=== PATIENT | female | born 1960 | race Caucasian/White ===

== ENCOUNTER → 2023-11-16 10:01 | Outpatient (BNVA) | payer OTHER, SELFPAY | PROVIDERS: Visit Provider Physician Assistant | DX: M17.11 Unilateral primary osteoarthritis, right knee | CPT/HCPCS: 73560; 73565 ==

== ENCOUNTER 2023-11-16 11:51 | Outpatient (CLI) | payer OTHER, SELFPAY | END 2023-11-16 11:52 | disposition home or self-care (01) | LOC: SPT 11:51 | PROVIDERS: Visit Provider Physician Assistant | DX: Z46.89 Encounter for fitting and adjustment of other specified devices (principal); M17.11 Unilateral primary osteoarthritis, right knee | CPT/HCPCS: 97760; L1851 ==

== ENCOUNTER 2024-04-04 11:37 | Outpatient (CLI) | payer OTHER, SELFPAY ==
--- NOTE | 2024-04-04 14:00 | CT_ITS ---
WS: [id number] CT RIGHT knee, noncontrast HISTORY: Right total knee arthoplasty TECHNIQUE: Protocol for [facility] total knee replacement has been obtained. This includes axial imaging th rough the RIGHT hip, RIGHT knee and RIGHT ankle. DLP: 1110.57 mGy.cm COMPARISON: Radiograph 11/16/2023 Mild degenerative air of the SI joints. Symmetric appearance of the hips. No bone destruction. RIGHT knee: Mild lateral subluxation of the patella. Tricompartment joint space narrowing. Small supr apatellar joint effusion. RIGHT ankle: Negative. CT/CT knee RT [facility] [id number] IMPRESSION: CT imaging provided for [facility] robotic total knee replacement.
== END 2024-04-04 11:38 | disposition home or self-care (01) ==
LOC: RAD 11:41
PROVIDERS: Visit Provider Physician Assistant
DX: Z01.818 Encounter for other preprocedural examination (principal); M17.11 Unilateral primary osteoarthritis, right knee
CPT/HCPCS: 73700

== ENCOUNTER → 2024-04-05 09:04 | Outpatient (BNVA) | payer OTHER, SELFPAY | PROVIDERS: Visit Provider Family Medicine | DX: Z01.818 Encounter for other preprocedural examination (principal) | CPT/HCPCS: 80053; 81003; 85025 ==

== ENCOUNTER 2024-04-19 10:26 | Observation (INO) | payer OTHER, SELFPAY ==
[2024-04-19] VITALS (16 sets, daily range): BP systolic 90–146; BP diastolic 53–84; PULSE 60–87; RESP 15–20; TEMP 35.7–36.8; O2SAT 93–100; BMI 31.2
[2024-04-19] MEDS: lactated ringers 500 ML IV (06:53)
[2024-04-19] MEDS: acetaminophen 1,000 MG/100 ML PIGGYBACK 400 MG IV ×3 (06:55→23:04)
[2024-04-19] MEDS: sodium chloride 0.9% 1,000 ML 30 ML IV (06:56)
[2024-04-19] MEDS: scopolamine 1.5 Patch 1 PATCH TRANSDERMA (07:00)
[2024-04-19] MEDS: ketorolac 30 mg/mL INJ IVP (07:00)
--- NOTE | 2024-04-19 07:01 | P.ANESASSM_ITS ---
Pre-Anesthetic Assessment Height/Weight: Height 5 ft 5 in Weight 188 lb Temp Pulse Resp BP Pulse Ox O2 Del Method 97.3 F L 62 17 146/84 97 Room Air 04/19/24 06:27 04/19/24 06:27 04/19/24 06:27 04/19/24 06:27 04/19/24 06:27 04/19/24 06:28 Preop Diagnosis: Arthritis Operation Date: 04/19/24 08:00 Proposed Procedures p Eduard Robot Total Knee Arthroplasty(Right) - Sanchez Calles, DO Was Beta Gustavo taken within 24 hours: N/A Was Clonidine taken within 24 hours: N/A Last intake: Intake Last Liquid Date 04/18/24 Last Liquid Time 21:00 Last Solid Date 04/18/24 Last Solid Time 01:00 Social No alcohol and No tobacco Exam alert, oriented x 3, clear to auscultation bilaterally and regular rate & rhythm Airway Submandibular: within normal limits Cervical ROM: within normal limits Mallampati: Class II Dentition: full Anesthetic Plan Anesthesia: MAC and Regional (specify below) Other: No prior issues with anesthesia NPO since midnight Denies any cardiac or pulmonary issues Preop BP 146/84 Labs reviewed and acceptable for procedure METs greater than 4 Plan for spinal anesthetic with post induction adductor canal block Medications/Allergies Home Medications Medication Instructions Recorded Confirmed Last Taken Type right lateral extractor loader and unloader knee brace #1 ea 11/16/23 04/18/24 Unknown Rx Allergies Allergy/AdvReac Type Severity Reaction Status Date / Time Penicillins Allergy Unknown Unknown Verified 04/19/24 06:23 Current Medications Generic Name Dose Route Start Last Admin Trade Name Rylanq PRN Reason Stop Dose Admin Lactated Ringer's 500 mls @ 500 mls/hr 04/19/24 06:11 04/19/24 06:53 Lactated Ringers IV 04/19/24 07:10 500 mls/hr .Q1H ONE Administration PFSH Anesthesia Social History Smoking and tobacco/nicotine status: former use of tobacco/nicotine Second hand smoke exposure: No Alcohol intake: current Alcohol intake frequency: holidays/special occasions only Alcohol type: beer Substance/Drug Use: never Adopted: No Caregiver/support person: Yes Lives independently: No Household members: spouse Housing: House Marital status: Number of children: 4 Number of grandchildren: 12 Highest education level completed: Some College, No Degree Data Anesthesia 04/19/24 06:38 04/19/24 06:38 Cardiac Studies: 2 No Data to Display
--- NOTE | 2024-04-19 07:04 | W.PM.OPSUD ---
Surgery/Procedure H&P Update DATE OF PROCEDURE: April 19, 2024 DATE H&P PERFORMED: 04/17/24 H&P UPDATE INFORMATION: I have reviewed H&P completed within last 30 days, I have examined patient prior to procedure and No changes to prior documentation CHANGES TO PREVIOUS DOCUMENTATION: Patient at this point in time has a which she states penicillin allergy back when she was a little child. At this point time we talked about Ancef and that this would cover the best for perioperative infection prevention as well as the low risk of cross-reactivity we talked about this in detail she understands and agrees to proceed with Ancef preoperatively. Patient understands agrees to current plan. All questions answered. PREOP DIAGNOSIS: Right knee degenerative joint disease PRIMARY INDICATION FOR PROCEDURE: Right knee degenerative joint disease PLANNED PROCEDURE: Operation Date: 04/19/24 08:00 Proposed Procedures p Eduard Robot Total Knee Arthroplasty(Right) - Sanchez Calles DO
[2024-04-19 07:06] LABS: Basophils # 0.1 10^3/uL (0.0-0.1); Basophils % 1.4 %; Eosinophils # 0.3 10^3/uL (0.0-0.8); Eosinophils % 4.9 %; Hematocrit 46.3 % (36-47); Lymphocytes # 2.4 10^3/uL (0.8-4.8); Lymphocytes % 38.8 %; Mean Corpuscular HGB Conc 33.7 g/dL (30-55); Mean Corpuscular Hemoglobin 29.8 pg (27-33); Mean Corpuscular Volume 88.4 fl (85-98); Mean Platelet Volume 10.1 fL (7.4-10.4); Monocytes # 0.4 10^3/uL (0.2-0.9); Monocytes % 5.6 %; Neutrophils # 3.08 10^3/uL (1.8-7.7); Neutrophils % 49.1 %; Nucleated Red Blood Cells % 0 %; Platelet Count 269 10^3/cmm (157-399); Red Blood Count 5.24 10^6/uL (3.85-5.65); Red Cell Distribution Width 11.9 % (12.1-15.1); White Blood Count 6.27 10^3/uL (3.29-11.43)
[2024-04-19 07:20] LABS: Blood Urea Nitrogen 15 mg/dL (8-23); Calcium 8.3 mg/dL (8.5-10.5); Carbon Dioxide 24 mmol/L (22-29); Chloride 108 mmol/L (98-107); Creatinine Clr Calc Pharmacy 106.1809; Glomerular Filtration Rate 101.6 mL/min (90-130); Glucose 84 mg/dL (65-115); Osmolality Calculated 294 mOsm/kg (285-295); Sodium 142 mmol/L (136-145)
[2024-04-19 07:24] LABS: Anion Gap 14.1 (5-19); Potassium 4.1 mmol/L (3.5-5.1)
[2024-04-19] MEDS: ceFAZolin 2,000 MG in sodium chloride 0.9% (plus) 50 ML 100 MG IV ×3 (07:54→23:12)
[2024-04-19] MEDS: tranexamic acid 1,000 mg/10mL SDV 1000 MG IV (08:20)
[2024-04-19] MEDS: EPINEPHrine 1 mg/mL INJ XX (08:55)
[2024-04-19] MEDS: tranexamic acid 1,000 mg/10mL SDV 1000 MG XX (08:55)
[2024-04-19] MEDS: ROPivacaine 0.2% Premix 100 mL 200 MG INTRA-ARTI (08:55)
[2024-04-19] MEDS: ketorolac 30 mg/mL INJ XX (08:55)
--- NOTE | 2024-04-19 09:37 | ANES.PROC ---
Anesthesia Procedures Procedure/Date: 04/19/24 Nerve Block ^: Nerve Block 1: Main Anesthesia: general anesthesia Time Out Performed: Yes Consent: requested by attending/covering physician Nerve block location: adductor canal Anesthesia monitors applied: pulse oximetry, EKG, BP cuff and oxygen Nerve block position: supine Anesthetic Used: ropivicaine 0.5% Amount of anesthesia used (mL): 20 Ultrasound used to: recognize landmarks Nerve Stimulator Used?: No Interscalene/Femoral BLK: other needle (pjunk 4inch) and visualize local anesthetic spread Injection: neg aspiration of heme Patient Tolerated Procedure: well Complications: none
--- NOTE | 2024-04-19 10:28 | XRR_ITS ---
PROCEDURE INFORMATION: Exam: XR Right Knee Exam date and time: 04/19/2024 10:53 AM Age: 63 years old Clinical indication: Device placement; Joint replacement hardware; Prior surgery; Surgery date: Post-operative (0-2 days); Surgery type: R tka; Additional info: S/P R tka TECHNIQUE: Imaging protocol: Radiologic exam of the right knee. Views: 1 or 2 views. COMPARISON: CT knee RT [facility] [id number] 04/04/2024 12:14 PM FINDINGS: Please note that the images are mislabeled. This is a right knee exam. Bones/joints: There are postoperative changes status post right knee replacement. Components are in anatomic alignment. No fractures are noted. Bony mineralization is normal. There is air within the joint from recent surgery. Soft tissues: Normal. XR/XR knee RT 1-2V [id number] IMPRESSION: 1. Postoperative changes status post right knee replacement.
--- NOTE | 2024-04-19 10:29 | P.OP_ITS ---
Operative Report Date of procedure: April 19, 2024 Surgeon: Sanchez Calles DO Chief Specialist Leed: Leeroy Calles PA-C: PA was necessary for assistance in this case with leg positioning retraction and protection of neurovascular structures as well as assistance in implantation wound closure and dressing application. Procedure: Preoperative diagnosis: Right knee degenerative joint disease Post-op diagnosis: Same Procedure done: Right total knee arthroplasty, cemented?robotic assisted Eduard Implants: Diana triathlon size 3 femur CR cemented?Right Diana triathlon size? 3 tibia universal baseplate cemented [place] triathlon symmetric patella size 31 mm Diana triathlon polyethylene 10mm Surgeon: Sanchez Calles DO Estimated blood?loss: 40 mL Tourniquet 75mins IV fluids: 1700 mL Urine output: 300 mL Complications: None Condition: stable Disposition: floor Brief History: Patient is a 63-year-old female with with chronic?Right knee degenerative joint disease.? Patient has been worked up in the outpatient setting in the orthopedic office at this point time through shared decision making given? [id number] arthritis as well as failed conservative treatment, and pt would?like to proceed with a?Right total knee arthroplasty.? Through shared decision making elected to proceed with surgical intervention for?Right total knee arthroplasty.? We talked about continued conservative treatment and surgical intervention as far as the risk benefits complications alternatives surgical and nonsurgical treatment options.? At this point time understanding patient risks with surgery pt agrees to proceed with surgical intervention.? Once again? risk with surgery include but are not?limited to make it better make it worse blood clot, heart attack, stroke, on the table, infection, injury to nerves or vessels, persistent pain, arthrofibrosis, implant failure.? Understanding these risks patient agrees to proceed with surgical intervention consent was obtained in the office.? All questions answered. Procedure: Patient was seen and evaluated in the preoperative holding area.? Consent was reviewed and signed with patient with plan for?Right total knee arthroplasty.? All questions answered.? Correct extremity marked.? Patient seen and evaluated by the anesthesia department and once cleared for surgery was taken back to the operative suite.? Patient was placed into a supine position on the OR table.? All bony prominences were well-padded.? Patient was appropriately secured to the bed.? Patient underwent anesthesia per the anesthesia department.? Patient received spinal anesthesia and? Siddiqui catheter was placed.? A nonsterile tourniquet was applied to the?Right thigh.? At this point in time a final timeout performed.? Patient received appropriate preoperative antibiotics and TXA. Next the?Right?lower extremity was then prepped and draped in standard orthopedic fashion. Esmarch tourniquet was used exsanguinate the?Right?lower ex tremity.? Tourniquet was insufflated to 250 mmHg. A standard anterior incision was made over midline of the knee.? Sharp scalpel excision through skin and subcutaneous tissue full-thickness skin flaps were made.? Fascia was elevated off of the extensor retinaculum was stable with medial parapatellar arthrotomy was then made.? The performed standard sequential releases..? Immediately on entry into the joint patient was found to have severe eburnated bone and tricompartmental arthritic changes noted.? With significant osteophyte formation.? Next the the patella was then stuffed and the knee was then flexed.?? Ro was placed superiorly around the anterior aspect of the femur this was freed of synovium and I subsequently then placed by 2 femur pins to establish my femur arrays for the Eduard robot.? These were then placed bicortically and? femur array was then appropriately secured with appropriate visualization.? Next attention was turned towards the tibial rays.? These were then drilled sequentially bicortically in parallel fashion and intraincisional.? I then placed my guide as well as my tibial array on in place.? This was appropriately secured and had excellent visualization with the Eduard robot.? Next the tibial checkpoint as well as femur checkpoint were then placed.? At this point time I then subsequently established my head center as well as my medial?lateral malleoli as well as my checkpoints.? Next utilizing standard Eduard technology I then mapped out the appropriate points and confirmation points around the femur as well as the tibia in standard fashion.? Once this was then done I then removed all osteophytes in preparation for dynamic testing.? All osteophytes were removed as well as I removed the ACL and the PCL was excised due to its significant tearing and degeneration noted.? At this point time the knee was brought into full extension and we performed our standard evaluation of our gap balancing stressing his?ligaments and extension as well as flexion appropriate adjustments were made to have appropriate gap balancing in both flexion and extension.? This plan for final counts.? We get a preoperative plan evaluating our implants which was a size 3 femur and a size 3 tibia.? Next we brought in the Eduard robot and sequentially made our femur cuts.? All excess bony cuts were then removed.? Finally we made our tibial cut.? Once this was done a standard PCL retractor was then placed into this position I excised the medial and?lateral meniscus.? The tibial cut was then subsequently removed all excess bony debris was removed.? I then utilized a?lamina fixed income trading vice president and remove the posterior osteophytes.? At this point time sized the tibia and confirmed this was a size 3.? I utilized our blunt probe to establish rotation of tibial implant.? Once this was done I then placed my tibia size 3 trial in appropriate position and then subsequently placed tibial pins to hold this into place placed a size 10 mm poly as well as a size 3 femur which was appropriately impacted in place knee was then subsequently brought into extension. Trials were then assessed,? this was stable with varus valgus stress in extension as well as had symmetrical translation when brought into flexion demonstrating symmetrical gaps. I had excellent balance gaps in flexion and extension with varus and valgus stresses.? At this point I was satisfied with these implants these were then verified and opened on the back table size 3 tibia, size 3 femur,? size 10 mm polythickness.? We did confirm appropriate gap balancing and stresses as well as alignment utilizing? Eduard and were satisfied with this plan.? ?At this point time with my trials in place I then towel clip the patella everted this made appropriate measurements subsequently utilizing freehand technique performed by patellar resurfacing this was confirmed to be appropriate resection and subsequently sized to be a 31 mm symmetric.? My drill peg guides were then clamped and appropriate position and appropriate position in the patella for appropriate tracking and parallel with the joint.? Pegs were drilled trial implant was placed and the knee was then subsequently ranged and found to have excellent patellar tracking.? Femur pegs were then drilled.? All checkpoints as well as guidepins and arrays were removed and appropriate counts made. Satisfied with our tibial placement rotation I then utilized the keel punch and prepped the tibia.? At this point time all of our trial implants were removed.? ? The wound bed? was thoroughly irrigated and dried and prepped for cementation.? Cement was mixed on the back table.? Once cement was ready this was then covered onto the tibia and the tibial baseplate was then impacted and all excess cement was removed.? Next the polyethylene was then impacted into place on the tibial baseplate.? Next cement was placed onto the femur as well as under the femur implants and impacted in to place and all excess cement was extruded and removed.? Knee was taken into full extension? to clear all excess cement was removed.? Warm saline was placed over the joint.? I then towel clip patella and dried for cementation. cemented the patella into place.? This was all clamped and the cement was allowed to cure.? Thorough irrigation performed with pulse?lavage.? I then placed my periarticular injection while the cement was curing.? Once cured the knee was taken through range of motion and had excellent stability and gaps were balanced in flexion and extension.? Tourniquet was then deflated. hemostasis satisfactory with electrocautery.? Next I then subsequently closed the capsule with Ethibond suture as well as a running strata fix suture.? Knee was then taken through range of motion 20 times.? Next the skin was then closed in?layered fashion of running stratifix sutures of deep and subcutenous tissue and skin.? ?closed in flexion and Prineo glue was then placed over the incision this allowed to cure.? Incision was covered with silverlon, with ABDs soft roll and Yovani wrap.? Patient was then awakened from anesthesia and taken to PACU in stable condition. Disposition: Patient taken to PACU in stable condition will be admitted to the floor for pain control PT/OT weight-bear as tolerated?Right?lower extremity dressing changes as needed, DVT prophylaxis. Pain control. Patient will receive appropriate postoperative antibiotics. ? Patient will follow up with the office in 2 weeks.? Patient understands agrees with current plan.? All questions answered.
--- NOTE | 2024-04-19 10:49 | P.BOP_ITS ---
Date of Procedure: [March 23, 20232023] Surgeon: [Dr. Calles DO] Circulating Nurse(s): [Leeroy Calles PA-C] Procedure(s) performed: [Right total knee arthroplasty with Eduard robotic assist] Findings of the procedure(s): [Right knee degenerative joint disease. Procedure went well and as planned.] Estimated blood loss: [40 ml] Specimen(s) removed: [N/A] Post-operative diagnosis: [Right knee degenerative joint disease.]
--- NOTE | 2024-04-19 10:52 | PM.PACU ---
PACU note Narrative: Patient is a 63-year female just underwent a right total knee arthroplasty. Pt transferred to PACU in stable condition. Dressing is dry. pt is awake and alert. pt can wiggle toes and plantarflex and dorsiflex foot. pt able to perform straight leg raise, Femoral nerve intact. Distal pulses are palpable toes are warm and well-perfused. Cap refill is normal and under 2 seconds. Sensation to foot is intact. Pain is controlled. Exam: awake Disposition: admitted
--- NOTE | 2024-04-19 11:05 | ANE.PACU2 ---
Inpatient post-anesthesia follow up: Airway intact: Yes Vital signs: Temperature 98.0 F Pulse Rate 68 Respiratory Rate 20 Blood Pressure 110/71 Pulse Oximetry 96 Oxygen Delivery Me thod Room Air Oxygen Flow Rate Fraction of Inspir ed Oxygen Hydration adequate: Yes Nausea and vomiting: No Pain level: 1 Mental status: Baseline
[2024-04-19] MEDS: chlorhexidine gluconate 0.12% Btl 473 mL 30 ML MUCOUS MEM ×3 (11:41→21:45)
[2024-04-19] MEDS: lactated ringers 1,000 ML 100 ML IV ×2 (11:42→21:45)
--- NOTE | 2024-04-19 12:41 | SUR.PHASEI ---
Pt given a warm blanket upon arrival to PACU. Pt temp within normal litmits upon arrival to PACU. While I was on hold trying to call report on the pt, she asked me if it was cold in the room to me. I told her yes it was, I did not have the first ice on her at that time because she was cold, I let her know she would be in her room upstairs shortly where it would be warmer and she could control the thermostat. She was okay with that. The pt's temp was taken with the last set of vitals at 1103 and was 97.4 temporally. When the pt got upstairs a bed had to be moved out of the room before Nela and I could wheel the pt in. I told Vanessa, the nurse, the first ice was not currently on the pt because she was cold. I remained in the room while a set of vital signs were taken. The temp on the vital cart would not read. It gave the loading sign, then it would go off, this went on for approximately 5 min while [facility] tried to get a temp under the pt's arms as well as orally. Vanessa said she would go get a hand held thermometer. After 5 to 7 min she returned. [facility] tried to get a temp with this thermometer with the same issue as before. No reading would show up. I told Vanessa the pt's temp was 97.4 when we left PACU, I stated I'd go back to PACU and get the temporal thermometer. Vanessa told me no, that the pt was cold and shivering and Sosa was getting a blanket for the bearhugger to put that on the pt. Above note reported to Ladan Georges, trade manager.
[2024-04-19] MEDS: tranexamic acid 1,000 MG/100 ML PREMIX 600 MG IV (15:40)
--- NOTE | 2024-04-19 17:05 | PM.CONSULT ---
Providers/Reason For Consult Consulting Physician/Specialty*: Dr. Orozco/internal medicine Reason for Consult*: Medical management Attending Physician: Sanchez Calles DO History of Present Illness History of Present Illness Denise Leyva is a 63 year old female with no significant past medical history underwent right total knee arthroplasty today. Reported to have 40 cc of blood loss. Hospital service was consulted for possible medical management. Appreciate CBC today showing normal hemoglobin, normal leukocytosis, CMP showing normal renal functions with mild transaminitis on 04/05. On examination patient lying comfortably in bed. Denies any complaints. Denies any nausea, vomiting, headache. States he has not seen a physician in many years but does not have a PCP. Review of Systems General: Reports: 10 or more systems reviewed and unremarkable except in HPI and below Const: Denies: fever(s), chills, body aches, change in appetite, change in weight, malaise, night sweats, diaphoresis, change in sleep pattern, daytime sleepiness or snoring Eyes: Denies: change in vision, blurry vision, photophobia, eye discomfort or eye discharge ENMT: Denies: throat pain, enlarged tonsils, hoarseness, mouth pain, oral sores, dry mouth, tinnitus, nasal congestion or post nasal drip Card: Denies: chest pain, palpitations, irregular heart rhythm, edema, swelling of feet/ankles, lightheadedness, syncope, pre-syncope, dyspnea on exertion, orthopnea, leg pain with exertion or acrocyanosis Resp: Denies: dyspnea, productive cough, non-productive cough, wheezing, stridor, pain on inspiration, change in phlegm color, hemoptysis or chest congestion GI: Denies: abdominal pain, nausea, vomiting, hematemesis, coffee ground emesis, dysphagia, heartburn, diarrhea, constipation, bloating, GI cramping, change in bowel habits, pain on defecation, hematochezia or melena : Denies: flank pain, dysuria, urinary frequency, urinary urgency, urinary hesitancy, nocturia or hematuria Musc: Denies: neck pain, back pain, extremity pain, joint pain, joint swelling, joint redness, joint stiffness or limited range of motion Neuro: Denies: headache(s), numbness in extremities, weakness in extremities, sensory changes, lack of coordination, difficulty walking, frequent falls, dizziness, vertigo, confusion, Slurred speech present, difficulty communicating thoughts or seizure-like activity Psych: Denies: anxiety, depression, mood swings, panic attacks, hopelessness or irritability Endo: Denies: polyuria, polydipsia, tired all the time, cold intolerance, excessive sweating, flushing or heat intolerance Nixon/Lymph: Denies: easy bruising or easy bleeding All/Imm: Denies: tongue swelling, facial swelling or acute wheezing Medications/Allergies Home Medications Medication Instructions Recorded Confirmed Last Taken Type right lateral mainspring torque tester knee brace #1 ea 11/16/23 04/19/24 Unknown Rx aspirin 325 mg tablet 325 mg PO BID 14 days #28 tabs 04/19/24 Unknown Rx calcium 600 mg (as 1 tab PO DAILY Bone health and 04/20/24 Unknown Rx carbonate)-vitamin D3 10 mcg (400 healing 30 days #30 tabs unit) tablet (Calcium 600 + D(3)) oxycodone 5 mg tablet 5 mg PO Q6H PRN pain postop 7 days 04/20/24 Unknown Rx #28 tabs Allergies Allergy/AdvReac Type Severity Reaction Status Date / Time Penicillins Allergy Unknown Unknown Verified 04/19/24 06:23 Current Medications Generic Name Dose Route Start Last Admin Trade Name Freq PRN Reason Stop Dose Admin Chlorhexidine Gluconate 30 ml 04/19/24 13:00 04/19/24 11:41 Chlorhexidine Gluconate 0.12% Btl 473 Ml MUCOUS MEM 30 ml QID SINTIA Administration Lactated Ringer's 1,000 mls @ 100 mls/hr 04/19/24 11:25 04/19/24 11:42 Lactated Ringers IV 100 mls/hr .Q10H SINTIA Administration Acetaminophen 1,000 mg in 100 mls @ 400 mls/hr 04/19/24 15:00 04/19/24 14:56 Acetaminophen IV 04/20/24 07:14 Infused Q8H SINTIA Infusion Cefazolin Sodium 2,000 mg/ 50 mls @ 100 mls/hr 04/19/24 16:00 04/19/24 16:49 Sodium Chloride IV 04/20/24 08:29 Infused Q8H SINTIA Infusion Protocol PFSH Acute PFSH: Social History Smoking and tobacco/nicotine status: former use of tobacco/nicotine Second hand smoke exposure: No Alcohol intake: current Alcohol intake frequency: holidays/special occasions only Alcohol type: beer Substance/Drug Use: never Adopted: No Caregiver/support person: Yes Lives independently: No Household members: spouse Housing: House Marital status: Number of children: 4 Number of grandchildren: 12 Highest education level completed: Some College, No Degree Vitals/I&O/Wt Last Vital Signs Temp 98.0 F 04/19/24 16:19 Pulse 68 04/19/24 16:19 Resp 16 04/19/24 16:19 BP 110/71 04/19/24 16:19 Pulse Ox 96 04/19/24 16:19 O2 Del Method Room Air 04/19/24 16:19 04/19/24 04/19/24 04/19/24 06:59 14:59 22:59 Intake Total 1010 / 1010 150 / 1160 Output Total 340 / 340 Balance 670 / 670 150 / 820 Weight last 48 hrs Weight 85.275 kg Weight 85.275 kg Physical Exam Narrative: General: No acute distress, AO x3 HEENT: PERRLA, pupils bilaterally equal and reactive Chest: Normal vesicular breath sounds, no added sounds, equal good air entry bilaterally CVS: S1-S2 regular, no murmurs, no tachycardia, no gallops, no rubs Abdomen: Soft, nontender, no organomegaly, bowel sounds present Neuro: No focal deficits, no facial deformity, AO x3, power 5/5 in all limbs Urinary Catheter Management: Siddiqui: Cath Placed During This Visit: yes Urinary Catheter Date of Insertion: 04/19/24 Urinary Catheter Time of Insertion: 08:10 Data 04/20/24 05:01 04/19/24 06:38 A&P Assessment and plan (1) Encounter for postoperative care: Post right knee arthroplasty. No past medical history. Perioperative antibiotics, anticoagulation, physical therapy, diet as per primary team. Monitor CBC. Check TSH, B12, folate level, iron panel, A1c, lipid panel, urinalysis. (2) Osteoarthritis of right knee: Plan Transaminitis: Seen on blood work on 04/05. Most likely in setting of ROSALES. Will request outpatient upper quadrant ultrasound. Repeat liver panel and GGT for now. Check INR in AM. Thank you for involving us in care of Ms. Leyva. Patient has been hemodynamically stable, saturating well on room air. Will follow-up the labs and if no concerns will sign off. Please reconsult with any concerns. Consult Attestations Medical Necessity Statement: As per primary team. Diagnoses Encounter for postoperative care Z48.89 Osteoarthritis of right knee M17.11
[2024-04-19] MEDS: mupirocin oint 22 gm 1 APPLIC NASAL (17:47)
[2024-04-19] MEDS: sennosides-docusate Tablet 2 TAB PO (17:48)
[2024-04-19] MEDS: oxyCODONE 5 mg IR Tab/Cap PO (17:48)
[2024-04-19] MEDS: docusate sodium 100 mg Capsule PO (17:48)
[2024-04-19] MEDS: calcium carb-vit d 600mg/400unit 1 Tablet 1 EACH PO (17:48)
[2024-04-19] MEDS: iron polysaccharide complex 150 mg Capsule PO (17:48)
[2024-04-19 17:57] LABS: Iron 140 ug/dL (37-145); Thyroid Stimulating Hormone 5.07 uIU/mL (0.27-4.20); Vitamin B12 443 pg/mL (232-1245)
[2024-04-19 17:59] LABS: Bilirubin Urine Negative (Negative); Blood Urine Negative (Negative); Glucose Urine UA Negative (Normal); Ketones Urine Negative (Negative); Leukocyte Esterase Urine 1+ (Negative); Nitrate Urine Negative (Negative); Protein Urine Negative (Negative); Urine Appearance Clear (CLEAR); Urine Color Yellow (Yellow); Urobilinogen Urine 0.2 mg/dL (Negative)
[2024-04-19 18:16] LABS: Percent Saturation 32.9 % (20-50); Total Iron Binding Capacity 425 mcg/dl; Unsaturated Iron Binding 285 ug/dL (112-347)
[2024-04-19 18:21] LABS: UA Manual Slide Review YES; UA Slide Review UA Slide Review Perf
[2024-04-19 18:22] LABS: Add Urine Culture? No; Add Urine Microscopic? YES; RBC Urine 0-4 /hpf (0-2); WBC Urine 0-4 /hpf (0-5)
[2024-04-19 19:35] LABS: Alanine Aminotransferase 45 U/L (0-33); Albumin Level 3.6 g/dL (3.5-5.2); Alkaline Phosphatase 95 U/L (35-105); Gamma Glutamyl Transferase 50 U/L (5-36); Globulin 2.5 g/dL (1.3-4.6); Total Bilirubin 0.4 mg/dL (0.15-1.2); Total Protein 6.1 g/dL (6.6-8.7)
[2024-04-19 20:08] LABS: Estmated Average Glucose 108; Hemoglobin A1C 5.4 % (4.0-6.0)
[2024-04-19 21:08] LABS: Free T4 Free Thyroxine 0.96 ng/dL (0.82-1.77)
[2024-04-19] MEDS: TRAMadol 50 mg Tablet PO (21:45)
[2024-04-19 23:42] LABS: Aspartate Amino Transferase 28 U/L (0-32)
[2024-04-19 23:48] LABS: T3 Free 2.8 PG/ML (2.0-4.4)
[2024-04-20] VITALS: BP 91/52; PULSE 61; RESP 20; TEMP 36.6; O2SAT 97
[2024-04-20 04:00] VITALS: BP 105/62; PULSE 84; RESP 19; TEMP 36.7; O2SAT 96
[2024-04-20 05:39] LABS: Basophils # 0.1 10^3/uL (0.0-0.1); Basophils % 0.4 %; Eosinophils % 0.2 %; Hematocrit 39.8 % (36-47); Lymphocytes # 2.2 10^3/uL (0.8-4.8); Lymphocytes % 18.9 %; Mean Corpuscular HGB Conc 32.9 g/dL (30-55); Mean Corpuscular Hemoglobin 29.8 pg (27-33); Mean Corpuscular Volume 90.5 fl (85-98); Mean Platelet Volume 10.5 fL (7.4-10.4); Monocytes # 0.6 10^3/uL (0.2-0.9); Monocytes % 4.7 %; Neutrophils # 8.81 10^3/uL (1.8-7.7); Neutrophils % 75.5 %; Nucleated Red Blood Cells % 0 %; Platelet Count 227 10^3/cmm (157-399); Red Cell Distribution Width 11.9 % (12.1-15.1); White Blood Count 11.68 10^3/uL (3.29-11.43)
[2024-04-20 05:55] LABS: INR 0.92 (0.8-1.2)
[2024-04-20 06:04] LABS: Chol HDL Ratio 2.77 mg/dL (0.0-4.40); Cholesterol 202 mg/dL (0-200); HDL Cholesterol 73 mg/dL (60-100); LDL Cholesterol Calculated 107 mg/dL (50-129); Magnesium 1.9 mg/dL (1.7-2.3); Triglycerides 112 mg/dL (0-150); VLDL Cholestrol Calculation 22 mg/dL (0-30)
[2024-04-20] MEDS: acetaminophen 1,000 MG/100 ML PIGGYBACK 400 MG IV (06:11)
[2024-04-20] MEDS: TRAMadol 50 mg Tablet PO ×2 (06:14→12:25)
[2024-04-20 06:21] LABS: Folate Level 8.8 ng/mL (4.8-37.3)
[2024-04-20 07:31] VITALS: BP 97/59; PULSE 70; RESP 15; TEMP 37.5; O2SAT 95
[2024-04-20] MEDS: ceFAZolin 2,000 MG in sodium chloride 0.9% (plus) 50 ML 100 MG IV (08:19)
[2024-04-20] MEDS: sennosides-docusate Tablet 2 TAB PO (08:20)
[2024-04-20] MEDS: aspirin 325 mg EC Tablet PO (08:20)
[2024-04-20] MEDS: calcium carb-vit d 600mg/400unit 1 Tablet 1 EACH PO (08:20)
[2024-04-20] MEDS: multivitamin therapeutic Tablet 1 TAB PO (08:20)
[2024-04-20] MEDS: docusate sodium 100 mg Capsule PO (08:21)
[2024-04-20] MEDS: iron polysaccharide complex 150 mg Capsule PO (08:21)
[2024-04-20] MEDS: mupirocin oint 22 gm 1 APPLIC NASAL (08:21)
[2024-04-20] MEDS: chlorhexidine gluconate 0.12% Btl 473 mL 30 ML MUCOUS MEM ×2 (08:21→12:26)
[2024-04-20 11:22] VITALS: BP 100/59; PULSE 68; RESP 15; TEMP 36.7; O2SAT 94
--- NOTE | 2024-04-20 13:15 | P.DS_ITS ---
Discharge Providers Date of Admission: 04/19/24 10:26 Date of Discharge: April 20, 2024 Attending Provider at Admission: Sanchez Calles DO Attending Provider at Discharge: Sanchez Calles DO Consults: Internal medicine?Dr. Orozco Diagnoses at Discharge Discharge Diagnosis (1) Encounter for postoperative care: Status: Acute (2) Osteoarthritis of right knee: Status: Resolved Reason for Visit Reason for Visit: M17.11 Brief History: Status post right TKA Hospital Course Hospital Course Patient presented to the preoperative holding area with plan for right total knee arthroplasty after patient has been worked up in the outpatient setting for failed conservative treatment of [right] knee degenerative joint disease. Once cleared by anesthesia for surgery patient subsequently was taken back to the operative suite underwent anesthesia per anesthesia department and then subsequently underwent a [right] total knee arthroplasty. Procedure was performed without any complications patient was taken to PACU in stable condition patient recovered well in PACU and then was admitted to the floor postoperatively internal medicine was consulted and on board for medical management and assistance with care. Patient received appropriate PT/OT, postoperative antibiotics, postoperative TXA, pain control, postoperative DVT prophylaxis. Elevation and ice. Patient encouraged for knee range of motion allowed weightbearing as tolerated to the operative lower extremity. Dressing was changed as needed, labs were monitored daily. Patient recovered well postoperatively and worked well and progressed well with therapy. It was determined on postoperative day [ 1] the patient was stable for discharge from an orthopedic standpoint and medicine. Patient was comfortable with discharge and plan was discharged home. Patient received appropriate discharge instructions as well as pain medication and DVT prophylaxis postoperatively. Given appropriate instructions for dressing management. Patient will follow-up with Dr. Calles/orthopedics in the office in 2 weeks. All questions answered. Understand if there is any issues questions or concerns and contact the office. Physical Exam Narrative: Examination of the right knee dressings on in place is clean dry and intact patient's compartments are soft compressible normal postoperative swelling and tenderness palpation about the right knee diffusely, distal pulses are palpable right lower extremity is warm well-perfused brisk capillary refill less than 2 seconds patient is able to wiggle toes plantarflex and dorsiflex ankle sensations intact to light touch distally. Urinary Catheter Management: Siddiqui: Cath Placed During This Visit: yes, but has since been removed by the nurse Reason for Continuing Indwelling Catheter: Perioperative Use in Selected Surgeries Urinary Catheter Date of Insertion: 04/19/24 Urinary Catheter Time of Insertion: 08:10 Date Urinary Catheter Removed: 04/19/24 Time Urinary Catheter Discontinued: 19:15 Discharge Data Studies Completed and Pending Completed Studies During Hospitalization Category Date Time Status XR knee RT 1-2V [id number] Routine Exams 04/19/24 10:28 Completed Pending at discharge Category Date Time Status Complete Blood Count w/Auto AM LABS Lab 04/21/24 04:00 Ordered Complete Blood Count w/Auto AM LABS Lab 04/22/24 04:00 Ordered MAG [Magnesium] AM LABS Lab 04/21/24 04:00 Ordered MAG [Magnesium] AM LABS Lab 04/22/24 04:00 Ordered Radiology Impressions Knee X-Ray 04/19/24 10:28 IMPRESSION: 1. Postoperative changes status post right knee replacement. Laboratory Results WBC 11.68 10^3/uL (3.29-11.43) H 04/20/24 05:01 RBC 4.40 10^6/uL (3.85-5.65) 04/20/24 05:01 Hgb 13.10 g/dL (11.27-16.99) 04/20/24 05:01 Hct 39.8 % (36-47) 04/20/24 05:01 MCV 90.5 fl (85-98) 04/20/24 05:01 MCH 29.8 pg (27-33) 04/20/24 05:01 MCHC 32.9 g/dL (30-55) 04/20/24 05:01 RDW 11.9 % (12.1-15.1) L 04/20/24 05:01 Plt Count 227 10^3/cmm (157-399) 04/20/24 05:01 MPV 10.5 fL (7.4-10.4) H 04/20/24 05:01 Neut % (Auto) 75.5 % 04/20/24 05:01 Lymph % (Auto) 18.9 % 04/20/24 05:01 [place] % (Auto) 4.7 % 04/20/24 05:01 Eos % (Auto) 0.2 % 04/20/24 05:01 Baso % (Auto) 0.4 % 04/20/24 05:01 Neut # (Auto) 8.81 10^3/uL (1.8-7.7) H 04/20/24 05:01 Lymph # (Auto) 2.2 10^3/uL (0.8-4.8) 04/20/24 05:01 [place] # (Auto) 0.6 10^3/uL (0.2-0.9) 04/20/24 05:01 Eos # (Auto) 0.0 10^3/uL (0.0-0.8) 04/20/24 05:01 Baso # (Auto) 0.1 10^3/uL (0.0-0.1) 04/20/24 05:01 Nucleated RBC % (auto) 0 % 04/20/24 05:01 Nucleated RBCs # 0.0 /100WBC 04/20/24 05:01 PT 12.70 SECONDS (12.1-14.9) 04/20/24 05:01 INR 0.92 (0.8-1.2) 04/20/24 05:01 Sodium 142 mmol/L (136-145) 04/19/24 06:38 Potassium 4.1 mmol/L (3.5-5.1) 04/19/24 06:38 Chloride 108 mmol/L (98-107) H 04/19/24 06:38 Carbon Dioxide 24 mmol/L (22-29) 04/19/24 06:38 Anion Gap 14.1 (5-19) 04/19/24 06:38 BUN 15 mg/dL (8-23) 04/19/24 06:38 Creatinine 0.6 mg/dL (0.5-0.9) 04/19/24 06:38 GFR Calculation 101.6 mL/min (90-130) 04/19/24 06:38 Glucose 84 mg/dL (65-115) 04/19/24 06:38 Estimat Average Glucose 108 04/19/24 06:38 Hemoglobin A1c 5.4 % (4.0-6.0) 04/19/24 06:38 Calculated Osmolality 294 mOsm/kg (285-295) 04/19/24 06:38 Calcium 8.3 mg/dL (8.5-10.5) L 04/19/24 06:38 Magnesium 1.9 mg/dL (1.7-2.3) 04/20/24 05:01 Iron 140 ug/dL (37-145) 04/19/24 06:38 TIBC 425 mcg/dl 04/19/24 06:38 % Saturation 32.9 % (20-50) 04/19/24 06:38 Unsat Iron Binding 285 ug/dL (112-347) 04/19/24 06:38 Total Bilirubin 0.4 mg/dL (0.15-1.2) 04/19/24 06:38 Direct Bilirubin 0.20 mg/dL (0.00-0.30) 04/19/24 06:38 GGT 50 U/L (5-36) H 04/19/24 06:38 AST 28 U/L (0-32) 04/19/24 06:38 ALT 45 U/L (0-33) H 04/19/24 06:38 Alkaline Phosphatase 95 U/L (35-105) 04/19/24 06:38 Total Protein 6.1 g/dL (6.6-8.7) L 04/19/24 06:38 Albumin 3.6 g/dL (3.5-5.2) 04/19/24 06:38 Globulin 2.5 g/dL (1.3-4.6) 04/19/24 06:38 Triglycerides 112 mg/dL (0-150) 04/20/24 05:01 Cholesterol 202 mg/dL (0-200) H 04/20/24 05:01 LDL Cholesterol, Calc 107 mg/dL (50-129) 04/20/24 05:01 Total VLDL Cholesterol 22 mg/dL (0-30) 04/20/24 05:01 HDL Cholesterol 73 mg/dL (60-100) 04/20/24 05:01 Cholesterol/HDL Ratio 2.77 mg/dL (0.0-4.40) 04/20/24 05:01 Vitamin B12 443 pg/mL (232-1245) 04/19/24 06:38 Folate 8.8 ng/mL (4.8-37.3) 04/20/24 05:01 TSH 5.07 uIU/mL (0.27-4.20) H 04/19/24 06:38 Free T4 0.96 ng/dL (0.82-1.77) 04/19/24 06:38 Free T3 2.8 PG/ML (2.0-4.4) 04/19/24 06:38 Urine Color Yellow (Yellow) 04/19/24 17:45 Urine Appearance Clear (CLEAR) 04/19/24 17:45 Urine pH 6.0 (5-7) 04/19/24 17:45 Ur Specific Ione 1.010 (1.005-1.030) 04/19/24 17:45 Urine Protein Negative (Negative) 04/19/24 17:45 Urine Glucose (UA) Negative (Normal) 04/19/24 17:45 Urine Ketones Negative (Negative) 04/19/24 17:45 Urine Blood Negative (Negative) 04/19/24 17:45 Urine Nitrate Negative (Negative) 04/19/24 17:45 Urine Bilirubin Negative (Negative) 04/19/24 17:45 Urine Urobilinogen 0.2 mg/dL (Negative) 04/19/24 17:45 Ur Leukocyte Esterase 1+ (Negative) A 04/19/24 17:45 Urine RBC 0-4 /hpf (0-2) H 04/19/24 17:45 Urine WBC 0-4 /hpf (0-5) H 04/19/24 17:45 Ur Squamous Epith Cells None /hpf (0-5) 04/19/24 17:45 Amorphous Sediment Not Reportable 04/19/24 17:45 Urine Bacteria None /hpf (NONE) 04/19/24 17:45 Urine Mucus None /hpf 04/19/24 17:45 Blood Type B Positive 04/19/24 06:38 Rho(D) Type Rh positive 04/19/24 06:38 Antibody Screen Negative 04/19/24 06:38 Vitals Last Vital Signs Temp 98.1 F 04/20/24 11:22 Pulse 68 04/20/24 11:22 Resp 15 04/20/24 11:22 BP 100/59 04/20/24 11:22 Pulse Ox 94 04/20/24 11:22 O2 Del Method Room Air 04/20/24 11:22 Discharge Plan Discharge Patient Disposition: Home Health Service Condition: Stable Prescriptions: New calcium carbonate-vitamin D3 [Calcium 600 + D(3)] 600 mg-10 mcg (400 unit) tablet 1 tab PO DAILY 30 Days Qty: 30 0RF No Action (DME) right lateral inspector metal can knee brace See Rx Instructions .Route .MEDSUPPLY Qty: 1 0RF Rx Instructions: As directed tramadol 50 mg tablet 100 mg PO Q6H PRN (Reason: pain) 5 Days Qty: 40 0RF tramadol 50 mg tablet 100 mg PO Q6H PRN (Reason: pain) 5 Days Qty: 40 0RF Discharge Orders: Discharge Order (Routine); Ordered 04/20/24 Ordered By: Sanchez Calles Other Ambulatory Orders: DME: Walker (Order) Location: None Selected Ordered By: Sanchez Calles Physical Therapy Eval and Treat Outpatient (Order) Timeframe: 3 Days Location: Determined by Patient Ordered By: Sanchez Calles Referrals: [facility] [Outside] (Your therapy order has been sent to this facility to have Outpatient therapy started. You can call [phone] if you have not heard from them in 2-3 days to schedule your appointment. ) Manuelito Gray [Referring] - 04/27/24 1:30 pm (Appointment to Establish primary care provider. Arrive 15 mins early to complete paperwork and please bring all prescriptions with you. ) Leeroy Calles PA [Physician Associate Director Of Development] - 05/04/24 10:30 am Discharge Diet: Advance as tolerated Discharge Activity: Limit activity as instructed and Use walker/crutches as instructed Patient Instructions: Aspirin (By mouth), Oxycodone, Rapid Release (By mouth), Ondansetron (By mouth), Acute Wound Care (DC), Total Knee Replacement (GEN), Opioid Safety, Post Anesthesia Care Activity Restrictions/Additional Instructions: Orthopedic discharge instructions: Keep incisions clean dry and intact, leave Silverlon bandage dressings on in place for 7 days after that may rinse incisions with warm soapy water pat dry and redress with a dry dressing. Patient may weight-bear as tolerate to the operative extremity Utilize walker as needed Encourage knee range of motion Ice and elevate as needed for pain and swelling Supplement with Citracal/vitamin D for bone health and healing Take pain medication as prescribed Take antinausea medication as needed Pain medication can cause constipation. take [id number] stool softeners and or MiraLAX. Take prescribed aspirin twice daily for the next 14 days for blood clot prevention May supplement for pain with Tylenol [id number] as needed, can take 1000 mg 3 times a day (do not take more than 3000 mg in 24-hour.) No baths or soaks Follow-up in the orthopedic office in 2 weeks Contact the office for any questions or concerns Discharge Attestations Time Spent in Discharge Care*: less than 30 min Quality Metrics Clinical Quality Measures [ No reported AMI, CVA or VTE this stay] Coding Level of Care Code Acute Code for Chg Fwd Diagnoses Encounter for postoperative care Z48.89 Osteoarthritis of right knee M17.11 Time Spent (min) 15
[2024-04-20 13:49] VITALS: BP 100/59; PULSE 68; RESP 15; TEMP 36.7; O2SAT 94
--- NOTE | 2024-04-20 13:51 | PC.NURSE ---
Discharge instructions provided to pt and her . NO questions or concerns voiced at this time. Awaiting meds to beds, then will dc via wheelchair to private vehicle.
== END 2024-04-20 14:21 | disposition home health service (06) ==
LOC: MEDSURG 10:26
PROVIDERS: Physician Assistant; Student in an Organized Health Care Education/Training Program; Admitting Provider Student in an Organized Health Care Education/Training Program; Visit Provider Student in an Organized Health Care Education/Training Program
PROC: 8E0Y0CZ Robotic Assisted Procedure of Lower Extremity, Open Approach (ICD-10-PCS; CPT 27447; principal; 2024-04-19 08:00)
DX: M17.11 Unilateral primary osteoarthritis, right knee (principal); Z79.82 Long term (current) use of aspirin; Z87.891 Personal history of nicotine dependence
CPT/HCPCS: 20985; 27447; 36415; 51702; 73560; 80048; 80061; 80076; 81001; 82607; 82746; 82977; 83036; 83540; 83550; 83735; 84439; 84443; 84481; 85025; 85610; 86850; 86900; 97110; 97116; 97161; 97165; C1776; G0378; J0131; J0171; J0690; J1100; J1885; J2250; J2371; J2405; J2704; J2795; J7030; J7120

== ENCOUNTER → 2024-05-04 10:09 | Outpatient (BNVA) | payer OTHER, SELFPAY | PROVIDERS: Visit Provider Physician Assistant | DX: Z48.89 Encounter for other specified surgical aftercare (principal); Z96.651 Presence of right artificial knee joint | CPT/HCPCS: 73560; 73565 ==

== ENCOUNTER → 2024-06-16 10:43 | Outpatient (BNVA) | payer OTHER, SELFPAY | PROVIDERS: Visit Provider Physician Assistant | DX: Z96.651 Presence of right artificial knee joint (principal) | CPT/HCPCS: 73560; 73565 ==

== ENCOUNTER → 2024-09-15 09:58 | Outpatient (BNVA) | payer OTHER, SELFPAY | PROVIDERS: PCP Family Medicine; Visit Provider Physician Assistant | DX: Z96.651 Presence of right artificial knee joint (principal) | CPT/HCPCS: 73560; 73565 ==